=== PATIENT | male | born 1955 | race Caucasian/White ===

== ENCOUNTER 2021-10-18 16:12 | Outpatient (REF) | payer MEDICARE, SELFPAY ==
[2021-10-18 17:42] LABS: Anion Gap 12 (12-20); Blood Urea Nitrogen 16 mg/dL (9-16); Calcium 9.9 mg/dL (8.4-10.2); Carbon Dioxide 29 mmol/L (22-29); Chloride 106 mmol/L (96-108); Estimated Glomerular Filt Rate > 60; Glucose Random 95 mg/dL (60-115); Potassium 4.7 mmol/L (3.3-5.1); Sodium 142 mmol/L (135-145)
[2021-10-18 18:01] LABS: Syphilis Screen Nonreactive (Nonreactive)
[2021-10-18 18:07] LABS: Vitamin B12 713 pg/mL (200-900)
[2021-10-19 21:31] LABS: Lyme Abs Screen <0.90 index
== END 2021-10-18 16:13 | disposition home or self-care (01) ==
LOC: HO.LAB 16:12
PROVIDERS: Visit Provider Psychiatry & Neurology Neurology
DX: G31.84 Mild cognitive impairment of uncertain or unknown etiology (principal)
CPT/HCPCS: 36415; 80048; 82607; 86617; 86618; 86780

== ENCOUNTER 2021-11-22 13:33 | Outpatient (REF) | payer MEDICARE, SELFPAY ==
--- NOTE | ~2021-11-22 | US_ITS ---
EXAMINATION: US EXTRACRANIAL CAROTID DUPLEX, BILATERAL CLINICAL INFORMATION: Left endarterectomy COMPARISON: None TECHNIQUE: Real-time ultrasound and Doppler techniques (integrating B-mode 2-D vascular images, Doppler spectral analysis and color-flow Doppler imaging) were utilized to interrogate the extracranial carotid arteries, the vertebral arteries and proximal subclavian arteries bilaterally. The degree of stenosis is determined by criteria similar to NASCET. FINDINGS: Right Side: 1. There is minimal hard atherosclerotic plaque seen in the bifurcation/proximal ICA region. 2. The common carotid artery PSV proximally is 84.5 cm/s and distally 88.8 cm/s. 3. The proximal internal carotid artery velocities are 56.9 cm/s systolic and 21.0 cm/s diastolic. 4. The proximal external carotid artery PSV is 68.5 cm/s. 5. The vertebral artery shows antegrade flow. 6. The subclavian artery waveforms are normal. Left Side: 1. There is minimal hard atherosclerotic plaque seen in the bifurcation/proximal ICA region. 2. The common carotid artery PSV proximally is 104 cm/s and distally 82.4 cm/s. 3. The proximal internal carotid artery velocities are 59.7 cm/s systolic and 23.3 cm/s diastolic. 4. The proximal external carotid artery PSV is 118.0 cm/s. 5. The vertebral artery shows normal antegrade flow. 6. The subclavian artery waveforms are normal. US/US carotid duplex BI IMPRESSION: 1. RIGHT: No hemodynamically significant stenosis in right carotid artery. 2. LEFT: No hemodynamically significant stenosis in either carotid artery. 3. Normal antegrade flow seen in both vertebral arteries..
== END 2021-11-22 13:34 | disposition home or self-care (01) ==
LOC: HO.US 13:33
PROVIDERS: Visit Provider Psychiatry & Neurology Neurology
DX: I77.71 Dissection of carotid artery (principal)
CPT/HCPCS: 93880